=== PATIENT | female | born 1940 | race Caucasian/White ===

== ENCOUNTER 2021-10-21 08:39 | Inpatient (IN) | payer OTHER ==
[~2021-10-21] VITALS: Ht 160 cm; Wt 62.1 kg
--- NOTE | ~2021-10-21 | EMS ---
[address] [address] EMS Patient Care Report Name: ALINA BAUMANN Room #: REG HOLLIE Tucker#: [id number] Admission: 10/21/21 Attend Phys: Discharge: Date of : 39 Report #: [id number] THIS REPORT FOR: //name// Report Transmitted: 10/21/2021 08:24 EMS Care Summary [place], [place]/[facility] Incident [id number] @ 10/21/2021 08:11 Incident Location [address] [place] [address] Patient ALINA BAUMANN Female, 81 Years 1940 Patient Address Patient History [address] Elevation (STEMI) Myocardial Infarction,Cardiac - Stent, Patient Allergies No known allergies, Patient Medications Aspirin, Chief Complaint chest pain Disposition Transported Lights/[place] Dispatch Reason Chest Pain (Non-Traumatic) Transported To [facility] Narrative M36 dispatched on a chest pain. M36 arrived to find PT seated in chair inside of home. PT stated chest pain as chief complaint. PT stated "this feels like the last time I had a heart attack." PT assisted to stand and pivot to stretcher. PT secured with seatbelts and blanket. PT denied allergies. PT stated it has been years since her last heart attack and that she got stents from that. PT denied being on blood thinners. PT stated "[place] [address] EMS Patient Care Report Name: ALINA BAUMANN Room #: REG [facility]..#: [id number] Admission: 10/21/21 Attend Phys: Discharge: Date of : 39 Report #: [id number] aspirin every day, but I forget sometimes." PT stated "my veins don't like needles." PT vitals taken including 12 lead. PT treated per chest pain protocol. PT vitals monitored during transport including blood glucose and computer terminal operator. PT report given. PT moved to hospital bed via four person sheet lift. PT care and belongings transferred to ER staff at [facility] without incident. M36 placed back in service. Initial Vitals @08:20P: 65,CO: 1,SpO2: 82, @08:25P: 63, @08:29P: 33, @08:31P: 85,SpO2: 85, @08:34P: 41, @08:32P: 32,SpO2: 96, @08:30P: 54, @08:33P: 36,SpO2: 91, @08:23P: 38,SpO2: 95, @08:28P: 39, @08:30P: 48, @08:24P: 92,R: 18,BP: 142/66,Pain: 10/10,GCS: 15,Glucose: 132,SpO2: 98,Revised Trauma: 12,WA Suspected: true @08:36P: 56,R: 18,BP: 132/62,Pain: 10/10,GCS: 15,SpO2: 98,Revised Trauma: 12, Assessments @08:17MENTAL:Person Oriented,Event Oriented,Time Oriented,Place Oriented,SKIN:Pale,HEENT:LUNG SOUNDS:ABDOMEN:PELVIS//GI:EXTREMITIES:Left Arm: Abnormal Pulse,Right Arm: Abnormal Pulse,PULSE:Radial: 1+ Thready,NEURO:@08:32MENTAL:Event Oriented,Place Oriented,Time Oriented,Person Oriented,SKIN:Pale,HEENT:LUNG SOUNDS:ABDOMEN:PELVIS//GI:EXTREMITIES:PULSE:NEURO: Impression ST elevation myocardial infarction (STEMI) Procedures @08:18 ALS Assessment Response: UnchangedSucceeded @08:24 IV Therapy - Saline Lock 10cc (20 ga) Site: Forearm-Left Response: UnchangedSucceeded @08:31 Nitrostat - 0.4 Milligrams (mg) - Sublingual Response: Unchanged @08:21 Aspirin - 324 Milligrams (mg) - Oral Response: Unchanged @08:30 12-Lead ECG Response: UnchangedSucceeded @08:25 12-Lead ECG Response: UnchangedSucceeded @08:31 Oxygen FlowRate: 4 Device: Nasal Cannula (NC) Response: UnchangedSucceeded [facility] [address] [place] [address] EMS Patient Care Report Name: ALINA BAUMANN Room #: IRON Tucker#: [id number] Admission: 10/21/21 Attend Phys: Discharge: Date of : 39 Report #: [id number] Timeline 08:11,Call Received 08:11,Dispatch Notified 08:11,Dispatched 08:12,En Route 08:16,On Scene 08:17,At Patient 08:18,ALS Assessment,Response: UnchangedSucceeded, 08:20,BP: / M,PULSE: 65,RR: R,SPO2: 82 Ox,ETCO2: ,BG: ,PAIN: ,GCS: , 08:21,Aspirin - 324 Milligrams (mg) - Oral,Response: Unchanged 08:23,BP: / M,PULSE: 38,RR: R,SPO2: 95 Ox,ETCO2: ,BG: ,PAIN: ,GCS: , 08:24,IV Therapy - Saline Lock 10cc 20 ga Site: Forearm-Left,Response: UnchangedSucceeded, 08:24,BP: 142/66 M,PULSE: 92,RR: 18 R,SPO2: 98 Ox,ETCO2: ,B,PAIN: 10,GCS: 15, 08:25,12-Lead ECG,Response: UnchangedSucceeded, 08:25,BP: / M,PULSE: 63,RR: R,SPO2: Ox,ETCO2: ,BG: ,PAIN: ,GCS: , 08:28,BP: / M,PULSE: 39,RR: R,SPO2: Ox,ETCO2: ,BG: ,PAIN: ,GCS: , 08:29,Depart Scene 08:29,BP: / M,PULSE: 33,RR: R,SPO2: Ox,ETCO2: ,BG: ,PAIN: ,GCS: , 08:30,BP: / M,PULSE: 48,RR: R,SPO2: Ox,ETCO2: ,BG: ,PAIN: ,GCS: , 08:30,12-Lead ECG,Response: UnchangedSucceeded, 08:30,BP: / M,PULSE: 54,RR: R,SPO2: Ox,ETCO2: ,BG: ,PAIN: ,GCS: , 08:31,Oxygen FlowRate: 4 Device: Nasal Cannula (NC) Response: UnchangedSucceeded, 08:31,Nitrostat - 0.4 Milligrams (mg) - Sublingual,Response: Unchanged 08:31,BP: / M,PULSE: 85,RR: R,SPO2: 85 Ox,ETCO2: ,BG: ,PAIN: ,GCS: , 08:32,BP: / M,PULSE: 32,RR: R,SPO2: 96 Ox,ETCO2: ,BG: ,PAIN: ,GCS: , 08:33,BP: / M,PULSE: 36,RR: R,SPO2: 91 Ox,ETCO2: ,BG: ,PAIN: ,GCS: , 08:33,At Destination 08:34,BP: / M,PULSE: 41,RR: R,SPO2: Ox,ETCO2: ,BG: ,PAIN: ,GCS: , 08:36,BP: 132/62 M,PULSE: 56,RR: 18 R,SPO2: 98 Ox,ETCO2: ,BG: ,PAIN: 10,GCS: 15, 09:03,Call Closed Disclaimer v1.1 Copyright 2020 [employer] This EMS Care Summary contains data elements from the applicable legal record (which may be displayed differently). It is designed to provide pertinent information for the following purposes: continuity of care, clinical quality, and state data reporting. The complete legal record is available to ED staff and administrators of the receiving hospital in [employer]'s Patient Tracker. All data is provided "as is."
--- NOTE | ~2021-10-21 | EMS ---
[address] [address] EMS Patient Care Report Name: ALINA BAUMANN Room #: 218-P ADM IN M.R.#: [id number] Admission: 10/21/21 Attend Phys: Jenna Vernon MD Discharge: Date of : 39 Report #: [id number] THIS REPORT FOR: //name// Report Transmitted: 10/22/2021 14:20 EMS Care Summary [place], [place]/[facility] Incident [id number] @ 10/21/2021 08:11 Incident Location [address] [place] [address] Patient ALINA BAUMANN Female, 81 Years 1940 Patient Address Patient History [address] Elevation (STEMI) Myocardial Infarction,Cardiac - Stent, Patient Allergies No known allergies, Patient Medications Aspirin, Chief Complaint chest pain Disposition Transported Lights/[place] Dispatch Reason Chest Pain (Non-Traumatic) Transported To [facility] Narrative M36 dispatched on a chest pain. M36 arrived to find PT seated in chair inside of home. PT stated chest pain as chief complaint. PT stated "this feels like the last time I had a heart attack." PT assisted to stand and pivot to stretcher. PT secured with seatbelts and blanket. PT denied allergies. PT stated it has been years since her last heart attack and that she got stents from that. PT denied being on blood thinners. PT stated "I am supposed to take [address] [place] [address] EMS Patient Care Report Name: ALINA BAUMANN Room #: 218-P ADM IN M.R.#: [id number] Admission: 10/21/21 Attend Phys: Jenna Vernon MD Discharge: Date of : 38 Report #: [id number] aspirin every day, but I forget sometimes." PT stated "my veins don't like needles." PT vitals taken including 12 lead. PT treated per chest pain protocol. PT vitals monitored during transport including blood glucose and paid search marketing analyst. PT report given. PT moved to hospital bed via four person sheet lift. PT care and belongings transferred to ER staff at [facility] without incident. M36 placed back in service. Initial Vitals @08:20P: 65,CO: 1,SpO2: 82, @08:25P: 63, @08:29P: 33, @08:31P: 85,SpO2: 85, @08:34P: 41, @08:32P: 32,SpO2: 96, @08:30P: 54, @08:33P: 36,SpO2: 91, @08:23P: 38,SpO2: 95, @08:28P: 39, @08:30P: 48, @08:24P: 92,R: 18,BP: 142/66,Pain: 10/10,GCS: 15,Glucose: 132,SpO2: 98,Revised Trauma: 12,[place] Suspected: true @08:36P: 56,R: 18,BP: 132/62,Pain: 10/10,GCS: 15,SpO2: 98,Revised Trauma: 12, Assessments @08:17MENTAL:Person Oriented,Event Oriented,Time Oriented,Place Oriented,SKIN:Pale,HEENT:LUNG SOUNDS:ABDOMEN:PELVIS//GI:EXTREMITIES:Right Arm: Abnormal Pulse,Left Arm: Abnormal Pulse,PULSE:Radial: 1+ Thready,NEURO:@08:32MENTAL:Person Oriented,Time Oriented,Place Oriented,Event Oriented,SKIN:Pale,HEENT:LUNG SOUNDS:ABDOMEN:PELVIS//GI:EXTREMITIES:PULSE:NEURO: Impression ST elevation myocardial infarction (STEMI) Procedures @08:18 ALS Assessment Response: UnchangedSucceeded @08:24 IV Therapy - Saline Lock 10cc (20 ga) Site: Forearm-Left Response: UnchangedSucceeded @08:31 Nitrostat - 0.4 Milligrams (mg) - Sublingual Response: Unchanged @08:21 Aspirin - 324 Milligrams (mg) - Oral Response: Unchanged @08:30 12-Lead ECG Response: UnchangedSucceeded @08:25 12-Lead ECG Response: UnchangedSucceeded @08:31 Oxygen FlowRate: 4 Device: Nasal Cannula (NC) Response: UnchangedSucceeded [facility] [address] [place] [address] EMS Patient Care Report Name: ALINA BAUMANN Room #: 218-P ADM IN M.R.#: [id number] Admission: 10/21/21 Attend Phys: Jenna Vernon MD Discharge: Date of : 38 Report #: [id number] Timeline 08:11,Call Received 08:11,Dispatch Notified 08:11,Dispatched 08:12,En Route 08:16,On Scene 08:17,At Patient 08:18,ALS Assessment,Response: UnchangedSucceeded, 08:20,BP: / M,PULSE: 65,RR: R,SPO2: 82 Ox,ETCO2: ,BG: ,PAIN: ,GCS: , 08:21,Aspirin - 324 Milligrams (mg) - Oral,Response: Unchanged 08:23,BP: / M,PULSE: 38,RR: R,SPO2: 95 Ox,ETCO2: ,BG: ,PAIN: ,GCS: , 08:24,IV Therapy - Saline Lock 10cc 20 ga Site: Forearm-Left,Response: UnchangedSucceeded, 08:24,BP: 142/66 M,PULSE: 92,RR: 18 R,SPO2: 98 Ox,ETCO2: ,B,PAIN: 10,GCS: 15, 08:25,12-Lead ECG,Response: UnchangedSucceeded, 08:25,BP: / M,PULSE: 63,RR: R,SPO2: Ox,ETCO2: ,BG: ,PAIN: ,GCS: , 08:28,BP: / M,PULSE: 39,RR: R,SPO2: Ox,ETCO2: ,BG: ,PAIN: ,GCS: , 08:29,Depart Scene 08:29,BP: / M,PULSE: 33,RR: R,SPO2: Ox,ETCO2: ,BG: ,PAIN: ,GCS: , 08:30,BP: / M,PULSE: 48,RR: R,SPO2: Ox,ETCO2: ,BG: ,PAIN: ,GCS: , 08:30,12-Lead ECG,Response: UnchangedSucceeded, 08:30,BP: / M,PULSE: 54,RR: R,SPO2: Ox,ETCO2: ,BG: ,PAIN: ,GCS: , 08:31,Oxygen FlowRate: 4 Device: Nasal Cannula (NC) Response: UnchangedSucceeded, 08:31,Nitrostat - 0.4 Milligrams (mg) - Sublingual,Response: Unchanged 08:31,BP: / M,PULSE: 85,RR: R,SPO2: 85 Ox,ETCO2: ,BG: ,PAIN: ,GCS: , 08:32,BP: / M,PULSE: 32,RR: R,SPO2: 96 Ox,ETCO2: ,BG: ,PAIN: ,GCS: , 08:33,BP: / M,PULSE: 36,RR: R,SPO2: 91 Ox,ETCO2: ,BG: ,PAIN: ,GCS: , 08:33,At Destination 08:34,BP: / M,PULSE: 41,RR: R,SPO2: Ox,ETCO2: ,BG: ,PAIN: ,GCS: , 08:36,BP: 132/62 M,PULSE: 56,RR: 18 R,SPO2: 98 Ox,ETCO2: ,BG: ,PAIN: 10,GCS: 15, 09:03,Call Closed Disclaimer v1.1 Copyright 2020 [employer] This EMS Care Summary contains data elements from the applicable legal record (which may be displayed differently). It is designed to provide pertinent information for the following purposes: continuity of care, clinical quality, and state data reporting. The complete legal record is available to ED staff and administrators of the receiving hospital in [employer]s Patient Tracker. All data is provided "as is."
[2021-10-21 08:41] VITALS: BP 119/51; BP 138/114
[2021-10-21 08:51] LABS: ABSOLUTE NEUTROPHILS 4.2 thou/uL (1.4-8.2); BASOPHILS 1.1 % (0.0-2.0); EOSINOPHILS 1.6 % (0.0-3.0); HEMATOCRIT 42.6 % (37.0-47.0); HEMOGLOBIN 14.2 gm/dL (12.0-15.0); LYMPHOCYTES 37.3 % (24.0-44.0); MCHC 33.2 g/dL (28.0-37.0); MCV 90.3 fL (80.0-100.0); MONOCYTES 7.8 % (1.0-8.0); PLATELET COUNT 273 thou/uL (150-400); POLYS 52.2 % (36.0-66.0); RBC 4.72 mil/uL (4.20-5.00); RDW 13.6 % (10.5-14.5); WBC 8.1 thou/uL (4.0-11.0)
--- NOTE | 2021-10-21 08:56 | NUR ---
AT BEDSIDE ORDERED 4000 OF HEPARIN AND NS AT 100ML
[2021-10-21 09:00] LABS: CALCIUM 9.1 mg/dL (8.5-10.1); CREATININE 0.7 mg/dL (0.6-1.0); POTASSIUM 3.8 mmol/L (3.5-5.1)
[2021-10-21 09:10] LABS: ALBUMIN 3.5 g/dL (3.4-5.0); TOTAL BILIRUBIN 0.4 mg/dL (0.2-1.0); TOTAL PROTEIN 7.4 g/dL (6.4-8.2)
[2021-10-21 09:26] VITALS: BP 139/70
[2021-10-21 09:33] LABS: INR 1.07; PROTIME 11.6 Seconds (10.5-12.1)
--- NOTE | 2021-10-21 12:24 | CATHLAB ---
[facility] [address] [place] [address] INVASIVE PROCEDURE REPORT Name: ALINA BAUMANN Room #: 150-10 ADM IN M.R.#: [id number] Admission: 10/21/21 Attend Phys: Jenna Vernon MD Discharge: Date of : 39 Report #: [id number] THIS REPORT FOR: cc: NO FAMILY PHYSICIAN or PCP NO FAMILY PHYSICIAN or PCP Ced Rios MD ~ APPROVED REPORT Study performed: 10/21/2021 09:11:52 Patient Details Patient Status: In-Patient Room #: The patient is a 81 year-old female Event Personnel Ced Rios Career Technical Supervisor, Lisbeth Yanez RN RN, Natalie Escoto Paschal, Ja'net RTR Monitor Procedures Performed Art Access - R femoral artery* Left Heart Cath w/or w/o Coronaries [id number] [facility] LEONARDA Revasc AMI Total/Sub Single LAD C9606 AMIREVSING Hemostasis w/ Mynx 52520 Initial Mod Sed Same Phys/QHP Gr5y 069084 15527 Mod Sed Same Phys/QHP Ea 124953 Indication STEMI (>0 to less than or equal to 6 hours), Dyspnea, Chest pain Risk Factors Hypercholesterolemia, Coronary Artery Disease Previous Procedures/Diagnoses Previous PCI, Previous VT Procedure Narrative The patient was brought emergently to the Cardiac Catheterization Laboratory and was prepped and draped in a sterile manner. The Right Groin^ was infiltrated with 1% Lidocaine subcutaneous anesthesia. A PINNACLE 6FR Sheath #[id number] sheath was inserted into the RFA^. Coronary angiography was performed using coronary diagnostic catheters. The right coronary system was accessed and visualized with a JR4 catheter. The left coronary system was accessed and visualized with a JL4 catheter. The left ventricle was accessed and visualized with a PIGTAIL catheter. Left ventricular/Aortic Valve gradient [facility] [address] [address] INVASIVE PROCEDURE REPORT Name: ALINA BAUMANN Room #: [facility]-10 [facility].#: [id number] Admission: 10/21/21 Attend Phys: Jenna Vernon, Discharge: Date of : 39 Report #: [id number] assessed via catheter pullback. Left ventriculogram was performed in 30 degree projection. Closure device was deployed with a Fr MYNXGRIP 6/7F #[id number]. The patient tolerated the procedure well and there were no complications associated with the procedure. There was no hematoma. Intraoperative Conscious Sedation Sedation start time: 9:31 Case end Time: 10:28 Fentanyl 50 mcg Fluoro Time: 10.13 minutes Dose: DAP 8402.60 cGycm2 1197 mGy Contrast Type and Amount: Omnipaque 205 ml Coronary Angiography The patient's coronary anatomy is right dominant. Diagnostic Cath Left Main The left main artery is a large-caliber vessel with mild disease in the ostium. LAD There is a stent in the ostial LAD extending up to the proximal segment. In the proximal portion of the stent there is a severe stenosis of 95%, the remaining segments of the stent have mild restenosis. The mid LAD segment is patent with no flow-limiting lesions. There are multiple small diagonal branches emanating from this segment, patent with no flow-limiting lesions. At the distal LAD segment, there is a total occlusion. Circumflex This is a small caliber vessel, with no flow-limiting lesions. Right Coronary This is a dominant vessel with mild to moderate lesions in the proximal and mid segments, 30 to 50%. R PDA There is a moderate-sized caliber vessel, patent with no flow-limiting lesions. RPLV There is a moderate-sized caliber vessel, patent with no flow-limiting lesions. Left Ventriculography The left ventricle is normal in size with Diminished contractility. The left ventricular ejection fraction is estimated to be 40%. Left ventricular wall motion abnormalities are present. Hemodynamics The aortic pressure is 164/67 mmHg with a mean of 55 mmHg. The left ventricular pressure is 144/3 mmHg with a mean of mmHg. The left ventricular end diastolic pressure is 29 mmHg. Pullback from the left [facility] [address] [place] [address] INVASIVE PROCEDURE REPORT Name: ALINA BAUMANN Room #: 150-10 ADM IN M.R.#: [id number] Admission: 10/21/21 Attend Phys: Jenna Vernon, Discharge: Date of : 39 Report #: [id number] ventricle to the aorta revealed no gradient across the aortic valve. PCI Technique Lesion Anticoagulation was achieved with Angiomax. Percutaneous coronary intervention was performed on the distal left anterior descending artery segment. A VISTA 6FR XB 3.5 #[id number] Guide Catheter was used to engage the LAD ostium. A Luge Wire .014 x 182CM #[id number] Interventional Guidewire was used to cross the lesion. BALLOON DILATION A Balloon catheter MINI TREK RX 2.0 X 12 #[id number] was inserted and inflated up to 8.00atm for 13seconds. Additional Inflation: 6.00atm for 11seconds. Additional Inflation: 6.00atm for 15seconds. Additional Inflation: 6.00 elder for 12 seconds. COMMENTS The distal LAD segment was totally occluded, dilated with a small caliber balloon. This restored flow to the first half of the distal segment, but the terminal portion in the distal inferior wall is obstructed. PCI Technique Lesion 2 Percutaneous Coronary Intervention was performed on the proximal left anterior descending artery segment. Percutaneous coronary intervention was performed on the proximal left anterior descending artery segment. The lesion stenosis prior to intervention was 95% with MG 3 flow. A VISTA 6FR XB 3.5 #[id number] Guide Catheter was used to engage the lad ostium. A Luge Wire .014 x 182CM #[id number] Interventional Guidewire was used to cross the lesion. Balloon Dilation A Balloon catheter MINI TREK RX 2.0 X 12 #[id number] was inserted and inflated up to 12.00atm for 12seconds. Stent Deployment A stent XIENCE KWESI RX 3.25 X 8 #[id number] was inserted and inflated up to 18.00atm for 13seconds. Post Stent Deployment Balloon Dilation A Balloon catheter TREK NC RX 3.5 X 8 #[id number] was inserted and inflated up to 16.00atm for 13seconds. Final angiography reveals 0 % stenosis with MG 3 flow. [facility] [address] [place] [address] INVASIVE PROCEDURE REPORT Name: ALINA BAUMANN Room #: 150-10 ADM IN M.R.#: [id number] Admission: 10/21/21 Attend Phys: Jenna Vernon, Discharge: Date of : 39 Report #: [id number] Conclusion 1. PCI performed with placement of a drug-eluting stent into the severe stenosis in the ostial LAD stent. In addition, the total obstruction in the distal LAD segment was dilated with a 2.0 mm balloon, with partial congregation of blood flow to the first half of this region. 2. The RCA is a dominant vessel with mild to moderate disease. 3. There is moderate segmental LV dysfunction, with hypokinesis of the distal anteroapical and distal inferoapical segments. 4. Recommend dual antiplatelet therapy and compliance with medical therapy. <ELECTRONICALLY SIGNED> By: Ced Rios MD 10/21/21 1223 22 122 Ced Rios MD /INF
--- NOTE | 2021-10-21 12:26 | EKG ---
[address] [place] [address] ELECTROCARDIOGRAM REPORT Name: ALINA BAUMANN Room #: 150-10 ADM IN M.R.#: [id number] Admission: 10/21/21 Attend Phys: Jenna Vernon MD Discharge: Date of : 39 Report #: [id number] [facility] ED Test Date: 2021-10-21 Test Time: 08:37:56 Pat Name: ALINA BAUMANN Department: Room: 150 Gender: F Manager Bar: MAYURI : 1940 Requested By: Raulito Walker Order Number: [id number] MD: Ced Rios Measurements Intervals [place] Rate: 72 P: 43 WA: 162 QRS: 24 QRSD: 85 T: 75 QT: 481 QTc: 527 Interpretive Statements Sinus rhythm Ventricular bigeminy Inferior infarct, acute Anterior infarct, acute (LAD) Baseline wander in lead(s) V2 No previous ECG available for comparison Electronically Signed On 10-21-2021 12:26:32 1ST PRESSMAN by Ced Rios [email or web address] <ELECTRONICALLY SIGNED> By: Ced Rios MD 10/21/21 1226 0837 0837 MD DERREK Saldana
[2021-10-21 12:54] VITALS: BP 141/76
[2021-10-21 13:26] VITALS: BP 100/66
--- NOTE | 2021-10-21 14:12 | NUR ---
PATIENT ARRIVED TO UNIT AT APPX 1245 POST HEART CATH. PATIENT UP FROM BEDREST AT 1330. VS TAKEN AND ADMISSION HISTIRY AND ASSESSMENT COMPLETED. WCTM
[2021-10-21 16:48] VITALS: BP 120/82
--- NOTE | 2021-10-21 18:25 | NUR ---
NO FALLS OR INJURIES THIS SHIFT. ALL SAFETY MEASURES IN PLACE. PATIENT CAME FROM [facility] AT APPX 1345 AFTER HAVING A STENT PLACED IN HER LAD. PATIENT CONTINUED TO HAVE CHEST PAIN AND WAS TOLD THAT THIS WAS NOT UNUSUAL FOR PROCEDURE. MORPHINE GIVEN X1. PATIENT ALSO HAD AN EPISODE OF VOMITING AND ZOFRAN ORDERED AND GIVEN WITH COMPLETE RELEIF. FEMORAL SITE REMAIN CDI AND SOFT TO TOUCH AND PATIENT UP FROM FLATTIME AT 1535. PATIENT UP ONCE WITH NURSE TO VOID IN BR.
--- NOTE | 2021-10-21 18:31 | NUR ---
PATIENT HAS HAD TWO ROUND OF VTACH; FIRST RUN WAS A 5 BEAT WHILE SHE WAS COMPLETLY ASLEEP AND THEN THE 2ND RUN WAS 8 BEATS AND PATIENT WAS ASYSTOMATIC.
[2021-10-21 19:45] VITALS: BP 118/76
[2021-10-22 00:05] VITALS: BP 117/59
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
[2021-10-22 04:45] VITALS: BP 101/48
[2021-10-22 05:09] LABS: HEMATOCRIT 39.8 % (37.0-47.0); HEMOGLOBIN 13.4 gm/dL (12.0-15.0); MCH 30.2 pg (26.0-34.0); MCHC 33.6 g/dL (28.0-37.0); MCV 89.9 fL (80.0-100.0); RBC 4.43 mil/uL (4.20-5.00); RDW 13.4 % (10.5-14.5); WBC 9.2 thou/uL (4.0-11.0)
[2021-10-22 05:15] LABS: ALBUMIN 2.8 g/dL (3.4-5.0); CALCIUM 8.5 mg/dL (8.5-10.1); CREATININE 0.6 mg/dL (0.6-1.0); MAGNESIUM 2.1 mg/dL (1.8-2.4); PHOSPHORUS 3.1 mg/dL (2.5-4.9); POTASSIUM 3.6 mmol/L (3.5-5.1); TOTAL BILIRUBIN 0.5 mg/dL (0.2-1.0); TOTAL PROTEIN 6.3 g/dL (6.4-8.2)
--- NOTE | 2021-10-22 07:14 | EKG ---
[place] [address] [address] [facility] [place] [address] ELECTROCARDIOGRAM REPORT Name: ALINA BAUMANN Room #: 218-P ADM IN M.R.#: [id number] Admission: 10/21/21 Attend Phys: Jenna Vernon MD Discharge: Date of : 38 Report #: [id number] [facility] Test Date: 2021-10-21 Test Time: 13:37:14 Pat Name: ALINA BAUMANN Department: Room: 218 P Gender: F Plumber Assistant: SRI : 1940 Requested By: Ced Rios Order Number: [id number] : David Tim Measurements Intervals [place] Rate: 71 P: 20 [place]: 73 QRS: 30 QRSD: 80 T: 48 QT: 424 QTc: 461 Interpretive Statements Sinus bradycardia Paired ventricular premature complexes Aberrant conduction of SV complex(es) Short [place] interval Probable left atrial enlargement Compared to ECG 10/21/2021 08:37:56 Aberrant conduction of supraventricular beat(s) now present Electronically Signed On 10-22-2021 7:13:35 CATHODE WASHER by David Tim [email or web address] <ELECTRONICALLY SIGNED> By: David Tim MD, FAC 10/22/21 0713 1337 1337 David Tim MD, [facility] /EPI
[2021-10-22 08:35] VITALS: BP 120/69
--- NOTE | 2021-10-22 08:46 | HC ---
[facility] [place] [address] CONSULTATION Name: ALINA BAUMANN Room #: 218- ADM IN M.R.#: [id number] Admission: 10/21/21 Attend Phys: Jenna Vernon MD Discharge: Date of : 38 Report #: [id number] THIS REPORT FOR: cc: NO FAMILY PHYSICIAN or PCP NO FAMILY PHYSICIAN or PCP Ced Rios MD ~ DATE OF SERVICE: 10/21/2021 CARDIOLOGY CONSULTATION INDICATION: Chest pain. HISTORY OF PRESENT ILLNESS: This is an 81-year-old female with remote history of CAD/IA, hypercholesterolemia, noncompliance, presenting with chest pain that started 30 minutes prior to presentation. She reports having a heart attack many years ago, details are unavailable. She is not on any medications except aspirin, which she forgets to take at most times. This morning, she developed substernal chest pains radiating down both arms with some diaphoresis. She denies any recent fever, chills or cough. PAST MEDICAL HISTORY: IA with remote stent placement. Denies any hypertension or diabetes mellitus. Previously statin therapy was recommended, but she refused. ALLERGIES: None. MEDICATIONS: Aspirin intermittently. SOCIAL HISTORY: Denies tobacco use. FAMILY HISTORY: Noncontributory. REVIEW OF SYSTEMS: See HPI. PHYSICAL EXAMINATION: VITAL SIGNS: Blood pressure is 90/60, heart rate is 50 beats per minute. GENERAL APPEARANCE: This is an elderly-appearing female, in distress. HEENT: Normocephalic, atraumatic. Oral mucosa moist. NECK: Supple. LUNGS: Few basilar crackles on the right side. CARDIAC: S1, S2 positive. ABDOMEN: Soft, nontender. EXTREMITIES: No edema, no cyanosis. DIAGNOSTIC DATA: ECG reveals sinus bradycardia with PVCs with ST elevation in leads V3-V5. [facility] [address] [place] [address] CONSULTATION Name: ALINA BAUMANN Room #: 218-P [facility] IN M.R.#: [id number] Admission: 10/21/21 Attend Phys: Jenna Vernon MD Discharge: Date of : 38 Report #: [id number] ASSESSMENT AND PLAN: 1. Acute anterior wall myocardial infarction. We will manage with aspirin, Brilinta, and heparin in the ER. Discussed the risks and benefits of cardiac catheterization with the patient and family members. They understand and wish to proceed. 2. Hypercholesterolemia, will need statin therapy. 3. Noncompliance. Recommend compliance with medications. 4. Bradycardia. Received half an amp of atropine with improvement in heart rate. We will follow on telemetry. <ELECTRONICALLY SIGNED> By: Ced Rios MD 10/22/21 0846 [id number] [id number] Ced Rios MD /nt
--- NOTE | 2021-10-22 08:58 | EKG ---
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 : 1940 Requested By: Ced Rios Order Number: [id number] MD: Manolo Parikh Measurements Intervals [place] Rate: 68 P: 51 MI: 162 QRS: -27 QRSD: 73 T: 61 QT: 387 QTc: 412 Interpretive Statements Sinus rhythm Ventricular premature complexes Inferior infarct, old Minimal ST elevation, anterior leads Compared to ECG 10/21/2021 13:37:14 Comparison is extremely limited due to marked artifact on prior tracing Electronically Signed On 10-22-2021 8:58:21 [employer] by Manolo Parikh [email or web address] <ELECTRONICALLY SIGNED> By: Manolo Parikh MD, [facility] 10/22/21 0858 5 5 Manolo Parikh MD, [facility] /EPI
[2021-10-22 10:08] LABS: CHOLESTEROL 241 mg/dL (<200); HDL CHOLESTEROL 57 mg/dL (>40); LDL CHOLESTEROL 159 mg/dL (<100); TC:HDL 4.2 Ratio (Not establshd); TRIGLYCERIDE 126 mg/dL (<150); VLDL 25 mg/dL (<40)
--- NOTE | 2021-10-22 10:42 | NUR ---
TOOK OVER CARE OF PATIENT AT 0700. PTS DAUGHTER PRESENT AT BEDSIDE DURING BEDSIDE REPORT. PT RESTING COMFORTABLY. PT ON ROOM AIR; DENIES SOA. DENIES ANY CHEST PAIN. ASSESSMENTS CHARTED. VSS. WILL CONTINUE TO MONITOR. ECHO SCHEDULED FOR TODAY. RIGHT GROIN SITE CDI, NO HEMATOMA NOTED. FALL PRECAUTIONS IN PLACE AND CALL LIGHT WITHIN REACH.
--- NOTE | 2021-10-22 11:11 | NUR ---
PT ADMITTED FOR CHEST PAIN. CHART REVIEWED AND CASE DISCUSSED WITH CARE TEAM. PT DOES WATER AEROBICS 3-4 TIMES A WEEK AND DANCES WEEKLY FOR 3 HOURS. PT LIVES AT HOME WITH FAMILY. UP INDEPENDENTLY WITH ADLS AND MOBILITY. NO CM INTEVENTIONS INDICATED. PT DC HOME WITH NO NEEDS AT THIS TIME ONCE MEDICALLY STABLE.
[2021-10-22 11:40] VITALS: BP 104/62
--- NOTE | 2021-10-22 12:13 | 2DMMODE ---
[facility] [address] [place] [address] 2 D/M-MODE ECHOCARDIOGRAM Name: ALINA BAUMANN Room #: 218-P ADM IN M.R.#: [id number] Admission: 10/21/21 Attend Phys: Jenna Vernon MD Discharge: Date of : 38 Report #: [id number] THIS REPORT FOR: cc: NO FAMILY PHYSICIAN or PCP NO FAMILY PHYSICIAN or PCP Ced Rios MD ~ APPROVED REPORT Study performed: 10/22/2021 11:05:28 EXAM: Comprehensive 2D, Doppler, and color-flow Echocardiogram Patient Location: Bedside Room #: 218 Status: routine BSA: 1.65 HR: 63 bpm BP: 120/69 mmHg Rhythm: NSR/PVCs Other Information Study Quality: Adequate Indications Chest Pain STEMI. S/P PCI. Hx: [place]. 2D Dimensions RVDd: 33.73 mm IVSd: 9.39 (7-11mm) LVOT Diam: 19.61 (18-24mm) LVDd: 41.68 mm PWd: 8.86 (7-11mm) LVDs: 29.50 (25-40mm) Left Atrium: 38.04 (27-40mm) Aortic Root: 31.86 mm Volumes Left Atrial Volume (Systole) Single Plane 4CH: 38.85 mL Single Plane 2CH: 30.57 mL LA ESV Index: 22.00 mL/m2 Aortic Valve AoV Peak Corby.: 1.43 m/s AO Peak Gr.: 8.20 mmHg LVOT Max P.22 mmHg [facility] [address] [address] 2 D/M-MODE ECHOCARDIOGRAM Name: ALINA BAUMANN Room #: 218[facility] IN ..#: [id number] Admission: 10/21/21 Attend Phys: Jenna Vernon, Discharge: Date of : 38 Report #: [id number] LVOT Max V: 1.14 m/s RAJANI Vmax: 2.41 cm2 Mitral Valve E/A Ratio: 0.8 MV Decel. Time: 213.20 ms MV E Max Corby.: 0.57 m/s MV A Corby.: 0.73 m/s MV PHT: 61.83 ms IVRT: 101.50 ms Pulmonary Valve PV Peak Corby.: 0.83 m/s PV Peak Gr.: 2.73 mmHg Tricuspid Valve TR Peak Corby.: 2.43 m/s RAP Estimate: 10.00 mmHg TR Peak Gr.: 24.00 mmHg PA Pressure: 34.00 mmHg Left Ventricle The left ventricle is normal size. There is hypokinesis of the distal anteroapical and distal inferoapical segments. There is normal left ventricular wall thickness. Left ventricular systolic function is mild to moderately decreased. LVEF is 40-45%. Mild diastolic dysfunction is present (impaired relaxation pattern). Right Ventricle The right ventricle is normal size. The right ventricular systolic function is normal. Atria The left atrium size is normal. The right atrium size is normal. Aortic Valve The aortic valve is normal in structure. Mild aortic regurgitation. There is no aortic valvular stenosis. Mitral Valve Mitral valve leaflets are mildly thickened. Mild mitral annular calcification. Trace to mild mitral regurgitation. No evidence of mitral valve stenosis. Tricuspid Valve The tricuspid valve is normal in structure. Mild tricuspid regurgitation. Estimated PAP is 35-40mmHg. [facility] [address] [place] [address] 2 D/M-MODE ECHOCARDIOGRAM Name: ALINA BAUMANN Room #: 218-P ADM IN M.R.#: [id number] Admission: 10/21/21 Attend Phys: Jenna Vernon, Discharge: Date of : 38 Report #: [id number] Pulmonic Valve The pulmonary valve is normal in structure. Trace pulmonic regurgitation. Great Vessels The aortic root is normal in size. The ascending aorta is normal in size. IVC is borderline dilated and collapses <50% with inspiration. Pericardium There is no pericardial effusion. <Conclusion> The left ventricle is normal size. There is normal left ventricular wall thickness. Left ventricular systolic function is mild to moderately decreased. Mild diastolic dysfunction is present (impaired relaxation pattern). The right ventricle is normal size. The left atrium size is normal. Mild aortic regurgitation. Trace to mild mitral regurgitation. Mild tricuspid regurgitation. Estimated PAP is 35-40mmHg. <ELECTRONICALLY SIGNED> By: Ced Rios MD 10/22/211212 12 12 Ced Rios MD /INF
[2021-10-22 16:15] VITALS: BP 116/62
[2021-10-22 20:15] VITALS: BP 111/55
[2021-10-23 04:45] VITALS: BP 110/60
--- NOTE | 2021-10-23 06:56 | NUR ---
PATIENT CARES WHERE ASSUMED AT SHIFT CHANGE. PATIENT WAS ASSESSED AND MEDS WHERE PASSED. THIS SHIFT WAS UNEVENTFUL. PATIENT HAD NO REQUESTS OR COMPLAINTS. ROUNDING DONE, WILL CONTINUE TO MONITOR. THE BED IS IN A LOW AND LOCKED POSITION
[2021-10-23 08:30] VITALS: BP 122/53
[2021-10-23] MEDS ORDERED: BRILINTA90 MG PO (08:48)
[2021-10-23] MEDS ORDERED: METOPROLOL SUCC25 M1 PO (08:48)
[2021-10-23] MEDS ORDERED: LIPITOR40 MG PO (08:48)
[2021-10-23] MEDS ORDERED: BAYER CHEWABLE81 MG PO (08:48)
[2021-10-23 12:44] VITALS: BP 122/53
[2021-10-23 12:49] VITALS: BP 122/53
--- NOTE | 2021-10-23 13:31 | NUR ---
PT HAS DISCHARGE ORDERS TO DC HOME. DISCHARGE SUMMARY INDICATES PT NEEDS HH. CLARIFIED WITH DR DINERO PT IS TO DC HOME WITH NO NEEDS AND FOLLOW UP WITH OUTPT REHAB. SPOKE TO PT WHO DECLINED HH SERVICES AND REPORTS SHE WILL FOLLOW UP WITH CARDIAC REHAB. 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 NO FURTHER CM INTERVENTIONS AT THIS TIME.
[2021-10-23 13:35] VITALS: BP 122/53
[2021-10-24] MEDS ORDERED: VITAMIN D31250 MCG PO (08:43)
== END 2021-10-23 13:50 | disposition home or self-care (01) | DRG 246 ==
LOC: ER 08:39 → 2N 09:25 → TBA 09:25 → 2N 12:36
PROVIDERS: Emergency Medicine; Internal Medicine Cardiovascular Disease; ADMIT Internal Medicine; ATTEND Internal Medicine
PROC: 4A023N7 Measurement of Cardiac Sampling and Pressure, Left Heart, Percutaneous Approach (ICD-10-PCS; principal; 2021-10-21)
PROC: B2111ZZ Fluoroscopy of Multiple Coronary Arteries using Low Osmolar Contrast (ICD-10-PCS; principal; 2021-10-21)
PROC: B2151ZZ Fluoroscopy of Left Heart using Low Osmolar Contrast (ICD-10-PCS; principal; 2021-10-21)
PROC: 027034Z Dilation of Coronary Artery, One Artery with Drug-eluting Intraluminal Device, Percutaneous Approach (ICD-10-PCS; principal; 2021-10-21)
DX: T82.855A Stenosis of coronary artery stent, initial encounter (principal); I21.09 ST elevation (STEMI) myocardial infarction involving other coronary artery of anterior wall; I21.19 ST elevation (STEMI) myocardial infarction involving other coronary artery of inferior wall; I47.1 Supraventricular tachycardia; E78.5 Hyperlipidemia, unspecified; K22.2 Esophageal obstruction; R53.81 Other malaise; I25.10 Atherosclerotic heart disease of native coronary artery without angina pectoris; F12.90 Cannabis use, unspecified, uncomplicated; E78.00 Pure hypercholesterolemia, unspecified; I50.9 Heart failure, unspecified; M81.0 Age-related osteoporosis without current pathological fracture; E53.8 Deficiency of other specified B group vitamins; I25.5 Ischemic cardiomyopathy; Z79.899 Other long term (current) drug therapy; Z79.82 Long term (current) use of aspirin; I25.2 Old myocardial infarction; Z95.5 Presence of coronary angioplasty implant and graft; Z91.19 Patient's noncompliance with other medical treatment and regimen; Z90.49 Acquired absence of other specified parts of digestive tract; Z98.49 Cataract extraction status, unspecified eye; Y83.8 Other surgical procedures as the cause of abnormal reaction of the patient, or of later complication, without mention of misadventure at the time of the procedure; Y92.89 Other specified places as the place of occurrence of the external cause
CPT/HCPCS: 10081; 10194